=== PATIENT | female | born 1985 | race Two or more races ===

== ENCOUNTER → 2022-01-13 13:55 | Outpatient (CLI) | payer BC, SELFPAY ==
--- NOTE | ~2022-01-13 | US_ITS ---
EXAMINATION: US OB <= 14 weeks fetus DATE: 01/13/2022 14:14 INDICATION: Uncertain dates. TECHNIQUE: Real-time transabdominal pelvic ultrasound was performed. COMPARISON: None. FINDINGS: The uterus measures 10.3 x 8.1 x 8.8 cm. There is a 4.0 cm hypoechoic intramural fibroid. There is an intrauterine gestational sac. The crown rump length measures 4.3 cm, which correlates with an estimated gestational age of 11 weeks and 1 day(s) (+/-) 1 week(s) and 0 day(s). heart motion i s identified measuring 169 beats per minute (bpm) by M-mode Doppler. The right ovary measures 2.9 x 2 .0 x 2.4 cm. The left ovary measures 2.5 x 1.9 x 1.7 cm. There is no free fluid in the pelvis. IMPRESSION: 1. Single living intrauterine gestation with estimated date of delivery of 08/03/2022. 2. Uterine fibroid. Reviewed, dictated and finalized at location A. IMPRESSION: 1. Single living intrauterine gestation with estimated date of delivery of 08/03. 2. Uterine fibroid.
== END ==
PROVIDERS: PCP Obstetrics & Gynecology; Visit Provider Obstetrics & Gynecology
DX: Z36.9 Encounter for antenatal screening, unspecified (principal); Z3A.00 Weeks of gestation of pregnancy not specified; D25.9 Leiomyoma of uterus, unspecified
CPT/HCPCS: 76801

== ENCOUNTER 2022-01-26 15:26 | Outpatient (CLI) | payer BC, SELFPAY ==
[2022-01-26 16:21] LABS: Add Urine Microscopic? YES; Appearance Urine Clear (Clear); Bacteria Urine Trace /hpf; Bilirubin Urine Negative (Negative); Blood Urine Negative (Negative); Color Urine Straw (Yellow); Glucose Urine UA Negative (Negative); Ketones Urine Negative (Negative); Leukocyte Esterase Ur Trace LEU/UL (NEGATIVE); Mucus Urine Rare /lpf; Nitrate Urine Negative (Negative); Protein Urine Negative (Negative); RBC Urine 0-2 /hpf (0-2); Specific Grav Ur 1.008 (1.001-1.035); Squamous Epithelial Cell Urine Rare /hpf (Few); Urobilinogen Urine Negative mg/dL (<2.0); WBC Urine 0-3 /hpf (0-3)
[2022-01-26 16:23] LABS: Basophils Percent Auto 0.4 % (0.2-1.2); Eosinophils Absolute Auto 0.1 K/mm3 (0-0.3); Eosinophils Percent Auto 1.5 % (0-4.4); Hematocrit 36.3 % (37.0-47.0); Hemoglobin 12.3 g/dL (12.0-15.0); Immature Granulocyte Absolute 0.04 K/mm3 (0.00-0.031); Immature Granulocyte Percent A 0.5 % (0-0.5); Lymphocytes Absolute Auto 1.54 K/mm3 (0.9-3.2); Lymphocytes Percent Auto 20.5 % (18.3-44.2); Mean Corpuscular HGB Conc 33.9 g/dl (32-36); Mean Corpuscular Volume 82.7 fl (80-100); Mean Platelet Volume 10.8 fl (7.4-10.4); Monocytes Absolute Auto 0.5 K/mm3 (0.1-0.6); Monocytes Percent Auto 6.3 % (2.6-8.5); Neutrophils Absolute Auto 5.3 K/mm3 (1.3-6.7); Neutrophils Percent Auto 70.8 % (45.5-73.1); Platelet Count Result 214 k/mm3 (150-375); Red Blood Count 4.39 M/mm3 (4.2-5.4); Red Cell Distribution Width 14.1 % (11.5-14.5); White Blood Count 7.5 K/mm3 (4.5-10.0)
[2022-01-26 16:55] LABS: Vitamin D 25 Hydroxy 35.3 ng/mL
[2022-01-26 17:03] LABS: Thyroid Stimulating Hormone 0.569 uIU/mL (0.465-4.680)
[2022-01-26 17:21] LABS: HIV 1/2 Ab P24 Ag Result Negative (Negative)
[2022-01-26 17:27] LABS: Hepatitis C Virus Antibody Negative (Negative)
[2022-01-26 17:28] LABS: Hepatitis B Surface Antigen Negative (Negative)
[2022-01-26 18:22] LABS: Rubella IgG Antibody > 120.0 IU/ML
[2022-01-27 13:49] LABS: Rapid Plasma Reagin Non-Reactive (NonReactive)
[2022-01-29 18:03] LABS: Hematocrit 35.3 % (35.0-45.0); Hemoglobin 12.3 g/dL (11.7-15.5); MCH 28.3 pg (27.0-33.0); MCV 81.1 fL (80.0-100.0); Red Blood Cell Count 4.35 Mill/uL (3.80-5.10)
== END 2022-01-26 15:27 | disposition home or self-care (01) ==
PROVIDERS: PCP Obstetrics & Gynecology; Visit Provider Obstetrics & Gynecology
DX: Z34.90 Encounter for supervision of normal pregnancy, unspecified, unspecified trimester (principal); Z3A.00 Weeks of gestation of pregnancy not specified
CPT/HCPCS: 36415; 81001; 82306; 83021; 84443; 85025; 86592; 86703; 86762; 86787; 86803; 86850; 86900; 86901; 87086; 87340; G0432

== ENCOUNTER 2022-06-30 11:11 | Outpatient (CLI) | payer BC, SELFPAY ==
[2022-06-30 12:36] LABS: HIV 1/2 Ab P24 Ag Result Negative (Negative)
[2022-06-30 13:18] LABS: Vitamin D 25 Hydroxy 42.2 ng/mL
[2022-06-30 13:29] LABS: Rapid Plasma Reagin Non-Reactive (NonReactive)
== END 2022-06-30 11:12 | disposition home or self-care (01) ==
LOC: ANHLAB 11:12
PROVIDERS: PCP Obstetrics & Gynecology; Visit Provider Obstetrics & Gynecology
DX: Z34.90 Encounter for supervision of normal pregnancy, unspecified, unspecified trimester (principal); Z3A.00 Weeks of gestation of pregnancy not specified
CPT/HCPCS: 36415; 82306; 86592; 86703; G0432

== ENCOUNTER 2022-08-03 17:04 | Inpatient (IN) | payer BC, SELFPAY ==
[2022-08-03] VITALS (11 sets, daily range): BP systolic 105–113; BP diastolic 43–67; PULSE 81–102; TEMP 36.6–36.9
--- NOTE | 2022-08-03 17:50 | LDADM ---
This patient, Paula Pichardo, was admitted to Labor/Delivery/Recovery 109 on 08/03/22 at 17:04. Plans for labor, pain management and were discussed with patient. Patient/family oriented to hospital policies and general routines including ID bracelet, bed and alarms, visiting hours, pain management, procedures, bathroom and other care routines, personal items, smoking policy, room service/diet and guest tray routines, security routines, and visiting hours. Patient/Family are encouraged to report perceived risks to care and to ask questions if they do not understand what they are told or what they should do. See OBIX for further documentation.
[2022-08-03 17:56] LABS: Basophils Percent Auto 0.3 % (0.2-1.2); Eosinophils Absolute Auto 0.2 K/mm3 (0-0.3); Eosinophils Percent Auto 2.2 % (0-4.4); Hematocrit 34.9 % (37.0-47.0); Hemoglobin 11.5 g/dL (12.0-15.0); Immature Granulocyte Absolute 0.09 K/mm3 (0.00-0.031); Immature Granulocyte Percent A 1.3 % (0-0.5); Lymphocytes Absolute Auto 1.31 K/mm3 (0.9-3.2); Lymphocytes Percent Auto 18.8 % (18.3-44.2); Mean Corpuscular Hemoglobin 27.2 pg (26-34); Mean Corpuscular Volume 82.5 fl (80-100); Mean Platelet Volume 10.7 fl (7.4-10.4); Monocytes Absolute Auto 0.3 K/mm3 (0.1-0.6); Monocytes Percent Auto 4.7 % (2.6-8.5); Neutrophils Absolute Auto 5.1 K/mm3 (1.3-6.7); Neutrophils Percent Auto 72.7 % (45.5-73.1); Platelet Count Result 187 k/mm3 (150-375); Red Blood Count 4.23 M/mm3 (4.2-5.4); Red Cell Distribution Width 15.1 % (11.5-14.5)
[2022-08-03] MEDS: DINOPROSTONE 10 MG VAG INSERT VAGINAL (18:08)
[2022-08-03] MEDS: LACTATED RINGERS 1,000 ML 125 ML IV CONT (21:52)
[2022-08-04] VITALS (325 sets, daily range): BP systolic 70–147; BP diastolic 37–116; PULSE 59–175; RESP 16–18; TEMP 36.6–37.2; O2SAT 85–100; BMI 36.5
--- NOTE | 2022-08-04 00:10 | WPDANESEPPF ---
Anes - Initial Pre Proc Eval Procedure: Labor Epidural Date/Time: 08/04/22 00:10 Surgeon: Delmar Rao MD Pre Op Diagnosis: Labor Pain Pre Op Diagnosis: Induction of Labor Patient Data Age: 37 Gender: F Height: Weight: Last Vital Signs Temp 36.6 C 08/03/22 21:00 Pulse 80 08/04/22 00:06 BP 107/59 L 08/04/22 00:06 O2 Del Method Room Air 08/03/22 17:50 Allergies Allergy/AdvReac Type Severity Reaction Status Date / Time No Known Allergies Allergy Verified 07/28/22 09:33 Home Medications Medication Instructions Recorded Confirmed Type ferrous sulfate 325 mg (65 mg 325 mg PO DAILY 06/11/21 03/25/22 History iron) tablet prenat.vits,umer,rzj-kzms-zczsb 1 tablet PO DAILY 06/11/21 03/25/22 History Laboratory Tests 08/03/22 17:19 WBC 7.0 K/mm3 (4.5-10.0) RBC 4.23 M/mm3 (4.2-5.4) Hgb 11.5 L g/dL (12.0-15.0) Hct 34.9 L % (37.0-47.0) MCV 82.5 fl (80-100) MCH 27.2 pg (26-34) MCHC 33.0 g/dl (32-36) RDW 15.1 H % (11.5-14.5) Plt Count 187 k/mm3 (150-375) MPV 10.7 H fl (7.4-10.4) Immature Gran % (Auto) 1.3 H % (0-0.5) Neut % (Auto) 72.7 % (45.5-73.1) Lymph % (Auto) 18.8 % (18.3-44.2) [place] % (Auto) 4.7 % (2.6-8.5) Eos % (Auto) 2.2 % (0-4.4) Baso % (Auto) 0.3 % (0.2-1.2) Lymph # (Auto) 1.31 K/mm3 (0.9-3.2) [place] # (Auto) 0.3 K/mm3 (0.1-0.6) Eos # (Auto) 0.2 K/mm3 (0-0.3) Baso # (Auto) 0.0 K/mm3 (0.0-0.1) Abs Immat Gran (auto) 0.09 H K/mm3 (0.00-0.031) Absolute Neuts (auto) 5.1 K/mm3 (1.3-6.7) Absolute Nucleated RBC 0.0 K/mm3 (0.0-0.012) Nucleated RBC % 0.0 % (0.0-0.2) RPR Pending Blood Type AB Positive Antibody Screen Negative Patient hx anesthesia problems: none Family hx anesthesia problems: none Results Review: All pre-operative results and documents have been reviewed as part of the pre-operative evaluation. [facility] Past Medical History Medical History No active medical problems Surgical History Surgical History No pertinent past surgical history Family History Family History Other Patient denies significant medical history Social History Social History Smoking status: Never smoker Alcohol intake: never Substance use: never Lack of Transportation: No Lack of Food: Never True Current Housing: I Have Housing Concerned About Future Housing: No Difficulty Paying Gas/Electric Bills: No Difficulty Paying for Meds: No Currently Unemployed: No Education: Trade/Vocational Certificate Difficulty w/ Childcare or Family Care: No Spiritual care concerns: No Agree to blood products: No Anes - Eval Final PreProcedure Day of Procedure 08/04/22 00:10 Patient weight: normal Neurological: alert and oriented ASA classification: II Emergent: no Anesthetic plan: proceed Anesthesia type and monitoring: regional epidural and standard monitoring Results Review: All pre-operative results and documents have been reviewed as part of the pre-operative evaluation. Informed Consent: The patient's anesthetic plan and its attendant risks and benefits were discussed with the patient/family/POA. Questions were solicited and answers provided to the satisfaction of the patient/family/POA.
--- NOTE | 2022-08-04 00:47 | WPDANESEPN ---
Anes - Epidural Procedure Note Date/Time: 08/04/22 00:47 Consent: I have discussed with the patient/family/POA, the placement of an epidural catheter and the use of epidural narcotic/local anesthetic for labor analgesia and/or postoperative pain management, including associated potential risks, benefits, complications and side effects. I have discussed alternative methods of labor analgesia and/or postoperative pain management. The patient/family/POA, understand(s) and wish(es) to proceed with epidural narcotic/local anesthetic for labor analgesia and/or postoperative pain management. Time-Out: A pre-procedural Time-Out was completed immediately before starting the procedure and confirmed: Patient Identification, Site, Procedure, Patient Position and the Availability of Requisite Equipment. Clinical Indications: Labor Epidural Epidural Insertion Note Patient position: sitting Skin prep: chlorhexidine and sterile drape Needle: 18g Tuohy-Schliff Catheter: 20g Unstyleted Technique: Loss of resistance. Level of insertion: L3/4 Catheter skin brad (cm): 4 Length in epidural space (cm): 9 Skin anesthesia: lidocaine 1% Test dose: 1.5% Lidocaine with 1:[id number] Epi, negative for subarachnoid Inj and negative for intravascular Inj Time of test dose: 00:37 Observations: tolerated well Complications: none
[2022-08-04] MEDS: LACTATED RINGERS 1,000 ML 125 ML IV CONT ×5 (03:17→16:33)
--- NOTE | 2022-08-04 04:51 | PM.IMHP ---
H&P: HPI History of Present Illness Date/Time: 08/04/22 04:51 Chief Complaint: Induction of labor Narrative: She is a 37 y/o G1Po at 40 weeks by first trimester ultrasound which was not consistent with LMP of 11/03/21. PNC significant for AMA. There was also an episode of renal pelvis dilation at approximately 25 weeks which resolved a month later. Labs reviewed. GBS neg. Review of Systems Review of Systems: All systems reviewed & are unremarkable except as noted in HPI and below Constitutional: Constitutional: Reports no additional constitutional complaints and Denies headache(s) Eyes: Eyes: Denies spots in vision ENT: Reports system reviewed and no additional complaints, except as documented and Denies headache(s) Cardiovascular: Cardiovascular: Denies chest pain and Denies dyspnea Respiratory: Respiratory: Denies dyspnea Gastrointestinal: Gastrointestinal: Reports no additional gastrointestinal complaints Genitourinary: Genitourinary: Reports amenorrhea Musculoskeletal: Musculoskeletal: Reports no additional musculoskeletal complaints Integumentary/Breasts: Skin/Breast: Denies breast mass and Denies rash Neurologic: Denies headache(s) Psychiatric: Psychiatric: Reports no additional psychiatric complaints [facility] Past Medical History Medical History No active medical problems Surgical History Surgical History No pertinent past surgical history Family History Family History Other Patient denies significant medical history Social History Social History Smoking status: Never smoker Alcohol intake: never Substance use: never Lack of Transportation: No Lack of Food: Never True Current Housing: I Have Housing Concerned About Future Housing: No Difficulty Paying Gas/Electric Bills: No Difficulty Paying for Meds: No Currently Unemployed: No Education: Trade/Vocational Certificate Difficulty w/ Childcare or Family Care: No Spiritual care concerns: No Agree to blood products: No Meds Home Medications and Allergies Home Medications Medication Instructions Recorded Confirmed Type ferrous sulfate 325 mg (65 mg 325 mg PO DAILY 06/11/21 03/25/22 History iron) tablet prenat.vits,umer,qek-vqyk-llpgh 1 tablet PO DAILY 06/11/21 03/25/22 History Allergies Allergy/AdvReac Type Severity Reaction Status Date / Time No Known Allergies Allergy Verified 07/28/22 09:33 Vital Signs Vital Signs - 24 hr 08/03/22 17:50 08/03/22 18:30 08/03/22 18:46 Temperature Pulse Rate 92 83 Blood Pressure 109/60 105/62 Pulse Oximetry Oxygen Delivery Room Air 08/03/22 19:00 08/03/22 19:15 08/03/22 19:30 Temperature Pulse Rate 89 97 94 Blood Pressure 109/63 109/67 113/62 Pulse Oximetry Oxygen Delivery 08/03/22 19:45 08/03/22 20:00 08/03/22 20:28 Temperature Pulse Rate 102 H 98 81 Blood Pressure 108/60 107/43 L 110/67 Pulse Oximetry Oxygen Delivery 08/03/22 20:30 08/03/22 21:00 08/04/22 00:06 Temperature 98 F Pulse Rate 91 80 Blood Pressure 108/52 L 107/59 L Pulse Oximetry Oxygen Delivery 08/04/22 00:10 08/04/22 00:15 08/04/22 00:19 Temperature Pulse Rate 87 Blood Pressure 106/60 Pulse Oximetry 100 100 100 Oxygen Delivery 08/04/22 00:24 08/04/22 00:28 08/04/22 00:29 Temperature Pulse Rate 87 Blood Pressure 118/63 Pulse Oximetry 100 100 Oxygen Delivery 08/04/22 00:34 08/04/22 00:36 08/04/22 00:38 Temperature Pulse Rate 105 H 101 H Blood Pressure 115/66 122/63 Pulse Oximetry 100 98 Oxygen Delivery 08/04/22 00:40 08/04/22 00:43 08/04/22 00:45 Temperature Pulse Rate 89 98 98 Blood Pressure 120/59 L 117/55 L 115/63 Pulse Oximetry 100
--- NOTE | 2022-08-04 05:04 | PM.OBPNLAB ---
Pain Control Date/time seen: 08/04/22 05:04 Called due to repetitive late decels. She was admitted last pm and Cervidil placed. Since admission intermittent Cat1 -Cat 2 tracing with variables. Cervidil removed at 0053 due to increase contractions and 8 min bradycardic episode. She did have epidural placed. Since Cervidil removed intermittent variables and at 0400 variables increased and resolved spontaneously. AROM clear cervix 3.5/50/-2, IUPC placed.
[2022-08-04 07:46] LABS: Rapid Plasma Reagin Non-Reactive (NonReactive)
[2022-08-04] MEDS: OXYTOCIN 30 UNITS/NS 500 ML 30 UNITS/500 ML BAG IV CONT (08:37)
[2022-08-04] MEDS: TERBUTALINE SULFATE 1 MG/ML VIAL 0.25 MG SUB-Q (14:14)
--- NOTE | 2022-08-04 16:35 | PM.OBPNVD ---
OB - PN: Subj Subjective Date/time seen: 08/04/22 16:35 Interval history: FHT 145, called due to collette episode for 6 min, she had increase ctx prior to that with intermittent late, pitocin stopped, she continued to contract, terbutaline ordered, cervix 8/90/0, she had been 6 on recent exam prior to that. Collette resolved. Will keep off pitocin and if tracing reassuring will restart. OB - PN: Obj Data Labs 08/03/22 17:19 Labs: Laboratory Results - last 24 hr 08/03/22 17:19 WBC 7.0 RBC 4.23 Hgb 11.5 L Hct 34.9 L MCV 82.5 MCH 27.2 MCHC 33.0 RDW 15.1 H Plt Count 187 MPV 10.7 H Immature Gran % (Auto) 1.3 H Neut % (Auto) 72.7 Lymph % (Auto) 18.8 [place] % (Auto) 4.7 Eos % (Auto) 2.2 Baso % (Auto) 0.3 Lymph # (Auto) 1.31 [place] # (Auto) 0.3 Eos # (Auto) 0.2 Baso # (Auto) 0.0 Abs Immat Gran (auto) 0.09 H Absolute Neuts (auto) 5.1 Absolute Nucleated RBC 0.0 Nucleated RBC % 0.0 RPR Non-reactive Blood Type AB Positive Antibody Screen Negative OB - PN A/P Time Spent With Patient Time: Total time spent is greater than 50% in coordination of care (as documented) at patient's floor/unit and/or counseling patient:
--- NOTE | 2022-08-04 16:59 | P.PNOB_ITS ---
OB - PN: Subj Subjective Date/time seen: 08/04/22 16:59 Interval history: FHT 145, called at approximately 230 due to collette episode for 6 min, she had increase ctx prior to that with intermittent late, pitocin stopped, she continued to contract, terbutaline ordered, cervix 8/90/0, she had been 6 on recent exam prior to that. Collette resolved. Will keep off pitocin and if tracing reassuring will restart. OB - PN: Obj Data Labs 08/03/22 17:19 Labs: Laboratory Results - last 24 hr 08/03/22 17:19 WBC 7.0 RBC 4.23 Hgb 11.5 L Hct 34.9 L MCV 82.5 MCH 27.2 MCHC 33.0 RDW 15.1 H Plt Count 187 MPV 10.7 H Immature Gran % (Auto) 1.3 H Neut % (Auto) 72.7 Lymph % (Auto) 18.8 [place] % (Auto) 4.7 Eos % (Auto) 2.2 Baso % (Auto) 0.3 Lymph # (Auto) 1.31 [place] # (Auto) 0.3 Eos # (Auto) 0.2 Baso # (Auto) 0.0 Abs Immat Gran (auto) 0.09 H Absolute Neuts (auto) 5.1 Absolute Nucleated RBC 0.0 Nucleated RBC % 0.0 RPR Non-reactive Blood Type AB Positive Antibody Screen Negative OB - PN A/P Time Spent With Patient Time: Total time spent is greater than 50% in coordination of care (as documented) at patient's floor/unit and/or counseling patient:
--- NOTE | 2022-08-04 16:59 | P.PNOB_ITS ---
OB - PN: Subj Subjective Date/time seen: 08/04/22 16:59 Interval history: Pitocin restarted after an hour, at approximated 1640 repetitive late decelerations, cervix 8.5.90/0. She was recommended for due to intolerance to labor. Discussed risk of continuing labor and risk of section. She agreed to . OB - PN: Obj Data Labs 08/03/22 17:19 Labs: Laboratory Results - last 24 hr 08/03/22 17:19 WBC 7.0 RBC 4.23 Hgb 11.5 L Hct 34.9 L MCV 82.5 MCH 27.2 MCHC 33.0 RDW 15.1 H Plt Count 187 MPV 10.7 H Immature Gran % (Auto) 1.3 H Neut % (Auto) 72.7 Lymph % (Auto) 18.8 [place] % (Auto) 4.7 Eos % (Auto) 2.2 Baso % (Auto) 0.3 Lymph # (Auto) 1.31 [place] # (Auto) 0.3 Eos # (Auto) 0.2 Baso # (Auto) 0.0 Abs Immat Gran (auto) 0.09 H Absolute Neuts (auto) 5.1 Absolute Nucleated RBC 0.0 Nucleated RBC % 0.0 RPR Non-reactive Blood Type AB Positive Antibody Screen Negative OB - PN A/P Time Spent With Patient Time: Total time spent is greater than 50% in coordination of care (as documented) at patient's floor/unit and/or counseling patient:
--- NOTE | 2022-08-04 18:34 | W.PM.PROC2 ---
Procedure Note - Detailed Date of Procedure 08/04/22 Pre-op Diagnosis intolerance to labor. Non reassuring heart rate. Post-op Diagnosis Same Procedure Performed Primary low transverse section Surgeon Delmar Rao MD Anesthesia Epidural Indications Patient was admitted for MIL with cervicil on . She progressed in labor and had episode of bradycardia. This recovered. She had AROM. Pitocin started morning of 08/04. tracing Cat 2 throughout labor with several episodes of bradycardia which responded to discontinuing Pitocin. She was making progress and Pitocin restarted and she started having repetitive late decelerations and was recommended for primary section for intolerance to labor. Her cervix did not change from previous exam of 8 cm. position OP. She was informed of risk benefit of procedure and risk of continuing labor and she agreed to section. Findings Male , OP position. 7lb, 10 oz, apgars 9,9. Placenta appeared small. Description of Procedure After informed consent, risks and benefits of the procedure was discussed with the patient. The patient was taken to the operating room where she was placed in the dorsal lithotomy position with leftward tilt. After the prior placed epidural anesthesia was found to be adequate, she was then prepped and draped in the usual sterile fashion. A Pfannenstiel skin incision was made with a scalpel and carried through to the underlying layer of fascia. The fascia was then nicked in the midline, extending bilaterally. The fascia was dissected off the rectus muscles bluntly and sharply, superiorly and inferiorly. The rectus muscles were in the midline, and peritoneum was identified and entered bluntly. The pelvic organs were visualized. The bladder blade was then inserted. The vesicouterine peritoneum was identified and entered sharply with Metzenbaum scissors and extended bilaterally and then the bladder flap was created digitally. The low transverse uterine incision was then made with the scalpel and extended with bilateral index fingers in a crescent-shaped fashion. The head was delivered and the rest of the was delivered. The nose and mouth suctioned. The cord was clamped twice and cut. The was then handed off to the awaiting pediatric staff. The placenta was then delivered manually. The uterine cavity was sponge curretted. The uterus was then exteriorized. The uterine incision was then closed with 0 vicryl in a running locked fashion.A second layer of 0 vicryl was used in an imbricating fashion. Additional figure of eight stitch with 0 vicryl was used for hemostasis. Hemostasis noted. The uterus was then returned to the abdomen. Bilateral gutters were cleared off all clots and debris. The uterine incision was noted to be hemostatic. Interceed placed on uterine incision and vertically on front of uterus. The muscle bellies were inspected and noted to be hemostatic. The peritoneum was closed in a running fashion with 3.0 vicryl. The subfascial layer was noted to be hemostatic, and the fascia was closed with 0 Vicryl in a running fashion. The subcutaneous tissue was irrigated. Hemostasis obtained with cautery. The subcutaneous layer was then closed with 3-0 Vicryl in a subcutaneous fashion. The skin was closed with 4.0 vicryl with a [place] needle. Skin dermabond applied at incision. All instruments, needle, and lap counts were correct x3. The patient was taken to the recovery room in stable condition. Estimated Blood Loss 1,215 Drains No Packing No Pathology Yes (placenta and cord) Complications No immediate complications Condition Stable Disposition Floor [facility] Billing Surgery - Charge Forward: Surgery Billing
[2022-08-04] MEDS: OXYTOCIN 30 UNITS/NS 500 ML 30 UNITS/500 ML BAG 125 UNITS IV CONT (20:03)
--- NOTE | 2022-08-04 21:12 | PC.NURSE ---
Patient refused all pain medication in recovery. Patient stated that the pain was not bad enough to get pain medication
[2022-08-04] MEDS: DEXTROSE 5%/0.45% SOD CHL 1,000 ML 125 ML IV CONT (23:40)
[2022-08-05] MEDS: ceFAZolin 1 GM/NS 50 ML 1 GM/50 ML BAG IVPB ×3 (00:06→16:09)
[2022-08-05 00:09] VITALS: BP 101/66; PULSE 103; RESP 18; TEMP 36.8; O2SAT 100
[2022-08-05] MEDS: IBUPROFEN 600 MG TABLET PO ×3 (04:45→19:23)
[2022-08-05 04:57] LABS: Basophils Percent Auto 0.4 % (0.2-1.2); Eosinophils Percent Auto 0.5 % (0-4.4); Hematocrit 21.9 % (37.0-47.0); Immature Granulocyte Absolute 0.03 K/mm3 (0.00-0.031); Immature Granulocyte Percent A 0.5 % (0-0.5); Immature Platelet Fraction Pct 2.4 % (0.9-11.2); Lymphocytes Absolute Auto 0.61 K/mm3 (0.9-3.2); Lymphocytes Percent Auto 10.7 % (18.3-44.2); Mean Corpuscular HGB Conc 30.1 g/dl (32-36); Mean Corpuscular Volume 92.8 fl (80-100); Mean Platelet Volume 10.7 fl (7.4-10.4); Monocytes Absolute Auto 0.3 K/mm3 (0.1-0.6); Monocytes Percent Auto 4.6 % (2.6-8.5); Neutrophils Absolute Auto 4.8 K/mm3 (1.3-6.7); Neutrophils Percent Auto 83.3 % (45.5-73.1); Platelet Count Result 101 k/mm3 (150-375); Red Blood Count 2.36 M/mm3 (4.2-5.4); Red Cell Distribution Width 16.8 % (11.5-14.5); White Blood Count 5.7 K/mm3 (4.5-10.0)
[2022-08-05 05:01] LABS: Hemoglobin 6.6 g/dL (12.0-15.0)
--- NOTE | 2022-08-05 05:08 | PC.NURSE ---
Dr. Mustafa made aware of critical H&H, no new orders at this time, this RN instructed to notify Dr. Rao at 0600.
--- NOTE | 2022-08-05 06:09 | PC.NURSE ---
Message left with Dr. Rao's voicemail. Attempted to reach exchange service and they informed Dr. Mustafa is special education teacher for Dr. Rao until 658. Passing along information to oncoming RN.
--- NOTE | 2022-08-05 06:15 | PC.NURSE ---
Spoke with Dr. Rao regarding H&H, informed her that pt is non symptomatic, gave last two pulse rates, and patients output. Did inform physician that patients urine is very concentrated/brittany in color and appears as if there is possible blood in the urine. Informed physician patient is moving well and will be getting up later this morning. Dr. Rao did not want to proceed with interventions at this time. Physician wants her to be observed following getting up and moving around the room this morning. Passed along this information to oncoming RN.
[2022-08-05 06:50] VITALS: BP 93/54; PULSE 85; RESP 16; TEMP 36.7; O2SAT 100
[2022-08-05] MEDS: DEXTROSE 5%/0.45% SOD CHL 1,000 ML 125 ML IV CONT (08:21)
[2022-08-05] MEDS: MULTIVIT/MIN/PREN/FOL AC/IRON TABLET 1 TAB PO (08:22)
[2022-08-05] MEDS: DOCUSATE SODIUM 100 MG CAPSULE PO ×2 (08:22→16:09)
[2022-08-05] MEDS: POLYSACCHARIDE IRON COMPLEX 150 MG CAPSULE PO ×2 (08:22→16:09)
--- NOTE | 2022-08-05 08:37 | PC.NURSE ---
On 08/05/22, the student, Colleen Carey, provided care and completed [facility] documentation on this patient. I have reviewed the student's documentation and agree with the findings.
--- NOTE | 2022-08-05 10:15 | PC.NURSE ---
[id number] Introductions were made, then consulted with patient to assess needs related to . Mother led the conversation with her?plans to feed?her infant and the?experience so far. Resources provided for inpatient and outpatient services with the feeding sheet, mom/baby guide and name written on the white board. RN encouraged pyhg-je-[id number], stimulating with massage touch, and hand expression to encouraged infant to breastfeed. is sleepy and reluctant. Mother voiced understanding of information, however; requires much encouragement and will call if infant doesn't wake to breastfeed, if there's pain with or patient needs assistance. Reported to the primary RN. [id number] Purposefully rounded to assess infants needs. Infant is either fussy, asleep or [id number]-gi-[id number] relaxed on mother's chest demonstrating minimal feeding cues. Parents discuss the decision to supplement related to infant not latching since . Mother was initiated with pumping last night and she has pumped twice in the night. Instructions given on cleaning, care, usage, that there should be no pain, pumping schedule for milk production, collection, and storage of human milk. Parents are encouraged to record pumping schedule on the feeding sheet. Discussed with parents the value for a good milk production is to pump every 3 hours (8 times in 24 hours) 1-2 times at night if infant is not latching. Parents voiced understanding of the education shared along with mom and baby guide for additional resource information. Reported to the primary RN. 2082 - Father of baby was given instructions on how, when, and to thoroughly dry pump parts. Verbal and demonstration was given on paced bottle feeding. Encouraged [id number] and calling for assistance if doesn't latch, pain with latching, to feed on demand, and encouraged to practice with assistance to improve confidence. Reported to the Primary RN.
[2022-08-05] MEDS: HYDROcodone/acetaminophen (*CRX) 5-325 MG TABLET 1 TAB PO (11:38)
[2022-08-05 12:05] VITALS: BP 110/66; PULSE 116; RESP 18; TEMP 37.2; O2SAT 100
--- NOTE | 2022-08-05 12:07 | WPDANLDNPN2 ---
Anes-Prog Note L&D-Neuraxial Date/Time: 08/05/22 12:07 Patient feedback: Patient satisfied with post-operative pain management.
--- NOTE | 2022-08-05 12:07 | WPDANLDPN2 ---
Anes-Prog Note L&D Date/Time: 08/05/22 12:07 Neuro status: Neuro function grossly intact. Vital Signs: Last Vital Signs Temp 36.7 C 08/05/22 06:50 Pulse 85 08/05/22 06:50 Resp 16 08/05/22 06:50 BP 93/54 L 08/05/22 06:50 Pulse Ox 100 08/05/22 06:50 O2 Del Method Room Air 08/05/22 07:15 Pain score (VAS): 0 I/O: Intake & Output 08/04/22 08/05/22 08/05/22 23:59 07:59 15:59 Intake Total 1000 1150 Output Total 350 925 Balance 650 225 Patient feedback: Patient satisfied with anesthetic care.
[2022-08-05] MEDS: SIMETHICONE 80 MG TAB.CHEW PO ×2 (13:56→16:09)
[2022-08-05] MEDS: HYDROcodone/acetaminophen (*CRX) 10-325 MG TABLET 1 TAB PO ×2 (14:48→23:21)
[2022-08-05 16:05] VITALS: BP 110/65; PULSE 104; RESP 16; TEMP 37.1; O2SAT 99
--- NOTE | 2022-08-05 17:10 | PM.OBPNVD ---
OB - PN: Subj Subjective Date/time seen: 08/05/22 0725 Interval history: She states adequate pain control. She has not sat up or ambulated. No SOB or CP. No flatus. No leg pain. Minimal vaginal bleeding. OB - PN: Obj Data Labs 08/05/22 04:41 Labs: Laboratory Results - last 24 hr 08/05/22 04:41 WBC 5.7 RBC 2.36 L Hgb 6.6 L* D Hct 21.9 L MCV 92.8 D MCH 28.0 MCHC 30.1 L RDW 16.8 H Plt Count 101 L MPV 10.7 H Immature Gran % (Auto) 0.5 Neut % (Auto) 83.3 H Lymph % (Auto) 10.7 L [place] % (Auto) 4.6 Eos % (Auto) 0.5 Baso % (Auto) 0.4 Lymph # (Auto) 0.61 L [place] # (Auto) 0.3 Eos # (Auto) 0.0 Baso # (Auto) 0.0 Abs Immat Gran (auto) 0.03 Absolute Neuts (auto) 4.8 Absolute Nucleated RBC 0.0 Nucleated RBC % 0.0 % Immature Plt Fraction 2.4 OB - PN A/P Assessment and Plan (1) Delivery by section: Status: Acute Assessment and Plan: POD1. Pain controlled well. Routine post care. (2) Postoperative anemia: Code(s): D64.9 - Anemia, unspecified Status: Acute Assessment and Plan: Asymptomatic. No active bleeding. Urine output good. Will continue to monitor. If becomes symptomatic then may need blood transfusion. Time Spent With Patient Time: Total time spent is greater than 50% in coordination of care (as documented) at patient's floor/unit and/or counseling patient: Exam Const: General: comfortable and no acute distress Orientation/consciousness: oriented to person, oriented to place and oriented to time Eyes: General: appearance normal, both eyes and all related structures Resp: Effort & Inspection: normal respiratory effort GI: Other: fundus at Umb firm appropriate tenderness nondistended dressing clean, dry, intact Extrem: General: no pedal edema and no calf tenderness Psych: Mental Status: mental status grossly normal Affect: normal affect
[2022-08-05 20:00] VITALS: BP 105/66; PULSE 99; RESP 18; TEMP 36.8; O2SAT 99
[2022-08-06] MEDS: IBUPROFEN 600 MG TABLET PO ×2 (07:21→16:53)
[2022-08-06] MEDS: MULTIVIT/MIN/PREN/FOL AC/IRON TABLET 1 TAB PO (07:21)
[2022-08-06] MEDS: DOCUSATE SODIUM 100 MG CAPSULE PO ×2 (07:21→16:53)
[2022-08-06] MEDS: POLYSACCHARIDE IRON COMPLEX 150 MG CAPSULE PO ×2 (07:21→16:53)
[2022-08-06] MEDS: HYDROcodone/acetaminophen (*CRX) 10-325 MG TABLET 1 TAB PO ×2 (07:22→22:00)
[2022-08-06 08:00] VITALS: BP 101/63; PULSE 95; RESP 16; TEMP 36.7; O2SAT 100
--- NOTE | 2022-08-06 09:12 | PM.OBPNVD ---
OB - PN: Subj Subjective Date/time seen: 08/06/22 09:12 Interval history: She states adequate pain control. She has ambulated in room without problems. No lightheadedness or dizziness. No SOB or CP. Tolerating regular diet. Positive Flatus. No leg pain. Baby well. OB - PN: Obj Data Labs 08/05/22 04:41 OB - PN A/P Assessment and Plan (1) Delivery by section: Status: Acute Assessment and Plan: POD 2. Doing well. Routine post op care. (2) Postoperative anemia: Code(s): D64.9 - Anemia, unspecified Status: Acute Assessment and Plan: Asymptomatic. Vitals stable. Continue oral iron supplementation. Time Spent With Patient Time: Total time spent is greater than 50% in coordination of care (as documented) at patient's floor/unit and/or counseling patient: Exam Const: General: comfortable and no acute distress Eyes: General: appearance normal, both eyes and all related structures Resp: Effort & Inspection: normal respiratory effort Auscultation: clear to auscultation bilaterally Cardio: Rate: regular rate GI: Other: incision intact, + BS, fundus below umb, firm Neuro: General: oriented to person, oriented to place and oriented to time Extrem: General: normal to inspection and no calf tenderness Psych: Mental Status: mental status grossly normal Affect: normal affect
[2022-08-06] MEDS: HYDROcodone/acetaminophen (*CRX) 5-325 MG TABLET 1 TAB PO (16:53)
[2022-08-06] MEDS: SIMETHICONE 80 MG TAB.CHEW PO (17:20)
[2022-08-06 19:06] VITALS: BP 105/61; PULSE 89; RESP 18; TEMP 36.9; O2SAT 99
[2022-08-07] MEDS: HYDROcodone/acetaminophen (*CRX) 10-325 MG TABLET 1 TAB PO (05:27)
[2022-08-07 08:00] VITALS: PULSE 82; RESP 16; O2SAT 100
[2022-08-07] MEDS: POLYSACCHARIDE IRON COMPLEX 150 MG CAPSULE PO (08:58)
[2022-08-07] MEDS: MULTIVIT/MIN/PREN/FOL AC/IRON TABLET 1 TAB PO (08:58)
[2022-08-07] MEDS: DOCUSATE SODIUM 100 MG CAPSULE PO (08:58)
[2022-08-07 09:05] VITALS: BP 106/75; PULSE 82; RESP 16; TEMP 36.8; O2SAT 100
--- NOTE | 2022-08-07 09:05 | PM.OBPNVD ---
OB - PN: Subj Subjective Date/time seen: 08/07/22 09:05 Interval history: She states adequate pain control. Ambulating, no lightheadedness dizziness and SOB. No nausea or emesis. No leg pain. Positive flatus. OB - PN: Obj Data Labs 08/05/22 04:41 OB - PN A/P Assessment and Plan (1) Delivery by section: Status: Acute Assessment and Plan: POD3 doing well. Discharge home today. Discussed discharge precautions. (2) Postoperative anemia: Code(s): D64.9 - Anemia, unspecified Status: Acute Assessment and Plan: Asymptomatic. H/H today. She states even if less than 6 she will refuse blood transfusion. She had had Hemoglobin 6-7 in past due to menorrhagia and no symptoms and increased it with diet and iron. Time Spent With Patient Time: Total time spent is greater than 50% in coordination of care (as documented) at patient's floor/unit and/or counseling patient: Exam Const: General: comfortable and no acute distress Resp: Effort & Inspection: normal respiratory effort GI: Other: incision intact, no drainage or erythema, fundus firm at umb, nontender Psych: Mental Status: mental status grossly normal Affect: normal affect
[2022-08-07 10:15] LABS: Hematocrit 26.5 % (37.0-47.0); Hemoglobin 8.7 g/dL (12.0-15.0)
[2022-08-07] MEDS: polyethylene glycoL 3350 17 GM POWD.PACK PO (10:29)
[2022-08-07] MEDS: IBUPROFEN 600 MG TABLET PO (12:25)
[2022-08-07] MEDS: HYDROcodone/acetaminophen (*CRX) 5-325 MG TABLET 1 TAB PO (12:26)
--- NOTE | 2022-08-07 13:19 | PC.NURSE ---
Patient viewed the discharge video Mother & Baby Care, The First Two Weeks . Patient was given the opportunity and encouraged to ask questions. Patient verbalized understanding of information shared and has been given the mother/baby guide for home reference.
[2022-08-10 11:23] VITALS: BP 111/68; PULSE 110; RESP 20; TEMP 36.7; O2SAT 100
--- NOTE | 2022-08-31 18:48 | PM.OBDSVD ---
DS: Admitting Diagnosis Discharge Date 08/07/22 Admitting Diagnosis Medical induction of labor DS: Discharge Diagnosis Discharge Diagnosis (1) Delivery by section: Status: Acute (2) intolerance to labor, delivered, current hospitalization: Code(s): O77.9 - Labor and delivery complicated by stress, unspecified Status: Acute Plan Delivery by section OB - DS: Summary Hospital Course Hospital Course: She was admitted for [facility]. Labor course significant for intolerance to labor for which she had an uncomplicated primary delivery. She did well . By day two she was ambulating well and tolerating regular diet and had adequate pain control. She was discharged to home on day 3. OB Procedures : Ultrasound OB Procedures Intrapartum: Spontaneous Vag Delivery OB Procedures: : None Peripartum Data Delivery Method: Section Procedures: Procedures Operation Date: 08/04/22 17:15 Actual Procedure Side Surgeon p Section Delmar Rao MD complications: none Status at Discharge Functional status at discharge: independent ambulation Time Spent with Patient Time attestation: Total time spent providing and/or coordinating discharge services: Exam Const: General: cooperative Orientation/consciousness: oriented to person, oriented to place and oriented to time HENMT: Face/Nose/Sinus: Normal external nose present Eyes: General: appearance normal, both eyes and all related structures Resp: Effort & Inspection: normal respiratory effort GI: Inspection: normal to inspection Skin: General skin exam: normal color Neuro: General: oriented to person, oriented to place and oriented to time Extrem: General: normal to inspection and no calf tenderness Psych: Appearance: grossly normal Mental Status: mental status grossly normal DS: Data Data Completed and Pending Completed studies during hospitalization: Pending at discharge 08/04/22 18:03 Surgical [PTH] Routine Discharge Plan Discharge Attending physician on discharge: Delmar Rao Consulting providers: Michelle Lima; Summer Hernandez Discharging Clinician: Delmar Rao Anticipated Discharge Date/Time: 08/07/22 11:00 Patient Disposition: Home, Self-Care Activity: may shower, no straining, no driving and pelvic rest Diet: regular Discharge Instructions: Education: Mom and Baby Guide Given to: Mother Follow-Up: Call your delivering provider's office for an appointment to be seen in: 1 Week Mom and baby should come to the [facility] for the follow-up appointment. Appointment Date/Time: Wednesday, August 10, 2022 at 11:00 a.m. What to expect at your follow-up visit: Blood Pressure Check Physical Assessment Call [phone] if you are unable to keep your appointment time. BREAST CARE: * Wear a snug supportive bra. * For engorgement discomfort: Breast Feeding: * Apply warm moist washcloths * Express milk as needed to relieve engorgement * Wear loose clothing Bottle Feeding: * May apply ice packs * For sore nipples: * Identify correct latch-on * Apply warm moist washcloths before and after nursing * Air dry nipples after nursing * May apply Lansinoh cream to nipples ABDOMINAL INCISION: (if applicable) * Allow incision to air dry * Do NOT use lotions for powders on your incision * When showering, allow soap and water to run over the incision, but do not wash incision EPISIOTOMY/PERINEAL CARE: * Until bleeding stops, use your bernarda bottle after urinating * Change your pad frequently throughout the day * You may take sitz baths several times a day (fill your bathtub with warm water and soak for 20 minutes.) Do NOT bathe in the water * No tub baths until seen by your
== END 2022-08-07 13:48 | disposition home or self-care (01) | DRG 788 ==
LOC: ANHLDR 17:09 → ANHOB2 08-04 21:26
PROVIDERS: Admitting Provider Obstetrics & Gynecology; PCP Family Medicine; Visit Provider Obstetrics & Gynecology
PROC: 10D00Z1 Extraction of Products of Conception, Low, Open Approach (ICD-10-PCS; CPT 59514; principal; 2022-08-04 17:15)
DX: O62.2 Other uterine inertia (principal); O76 Abnormality in fetal heart rate and rhythm complicating labor and delivery; O99.02 Anemia complicating childbirth; Z3A.39 39 weeks gestation of pregnancy; Z37.1 Single stillbirth
CPT/HCPCS: 36415; 85014; 85018; 85025; 85055; 86592; 86850; 86900; 86901; 88307; A9270; J0690; J1885; J2210; J2274; J2405; J2590; J2795; J3105; J7120

== ENCOUNTER 2022-09-10 11:24 | Outpatient (CLI) | payer BC, SELFPAY ==
[2022-09-10 12:16] LABS: Hematocrit 37.6 % (37.0-47.0); Hemoglobin 12.1 g/dL (12.0-15.0); Mean Corpuscular HGB Conc 32.2 g/dl (32-36); Mean Corpuscular Hemoglobin 26.8 pg (26-34); Mean Corpuscular Volume 83.2 fl (80-100); Platelet Count Result 228 k/mm3 (150-375); Red Blood Count 4.52 M/mm3 (4.2-5.4); Red Cell Distribution Width 13.9 % (11.5-14.5); White Blood Count 7.5 K/mm3 (4.5-10.0)
== END 2022-09-10 11:25 | disposition home or self-care (01) ==
PROVIDERS: PCP Family Medicine; Visit Provider Obstetrics & Gynecology
DX: D64.9 Anemia, unspecified (principal)
CPT/HCPCS: 36415; 85027